=== PATIENT | female | born 1995 | race African-American/Black ===

== ENCOUNTER 2018-09-23 12:20 | Emergency (ER) | payer OTHER, SELFPAY ==
--- OUTSIDE RECORDS SUMMARY | 2018-09-23 12:23 | XMS REPORT ---
:1995 Author Organization eClinicalWorks Care Team Providers Name Role Phone Madhav Russell Provider Role Unavailable Allergies No Known Allergies Problems Problem Type Condition Code Onset Dates Condition Status Problem Acute cystitis without hematuria N30.00 Active Problem Encounter for surveillance of Z30.42 Active injectable contraceptive Problem Encounter for Depo-Provera Z30.42 Active contraception Assessment Encounter for Depo-Provera Z30.42 Active contraception Problem Encounter for gynecological Z01.419 Active examination without abnormal finding Problem Well woman exam with routine Z01.419 Active gynecological exam Medications Medication Code System Code Instructions Start Date End Date Status Dosage Bactrim DS [facility] 14131085408 800-160 MG Orally October 31, Active 1 tablet Twice a day 2017 Results No Known Results Summary Purpose eClinicalWorks Submission
--- OUTSIDE RECORDS SUMMARY | 2018-09-23 12:23 | XMS REPORT ---
:1995 Author Organization eClinicalWorks Care Team Providers Name Role Phone Madhav Russell Provider Role Unavailable Allergies, Adverse Reactions, Alerts Substance Reaction Event Type N.K.D.A. Info Not Available Non Drug Allergy Problems Problem Type Condition Code Onset Dates Condition Status Assessment Acute cystitis without hematuria N30.00 Active Assessment Encounter for surveillance of Z30.42 Active injectable contraceptive Problem Acute cystitis without hematuria N30.00 Active Problem Encounter for surveillance of Z30.42 Active injectable contraceptive Problem Well woman exam with routine Z01.419 Active gynecological exam Assessment Encounter for gynecological Z01.419 Active examination without abnormal finding Assessment Well woman exam with routine Z01.419 Active gynecological exam Problem Encounter for gynecological Z01.419 Active examination without abnormal finding Medications Medication Code System Code Instructions Start Date End Date Status Dosage Bactrim DS [facility] [id number] 800-160 MG Orally October 31, Active 1 tablet Twice a day 2018 Results No Known Results Summary Purpose eClinicalWorks Submission
[2018-09-23 13:35] LABS: Absolute Lymphocytes (CBC) 1.4 K/uL (0.7-4.9); Absolute Monocytes 0.4 K/uL (0.1-1.3); Absolute Neutrophil 3.6 K/uL (1.8-8.0); Basophils % 0.3 % (0-1.3); Eosinophils % 2.5 % (0-4.4); Hematocrit 41.4 % (36.0-45.0); Lymphocytes % 24.8 % (15.3-44.8); MPV 8.5 fL (7.6-11.3); Monocytes % 6.9 % (3.3-12.3); RBC Red Blood Cell Count 4.56 M/uL (3.86-4.86)
--- NOTE | 2018-09-23 13:40 | ER ---
Nurse's Notes [facility] Name: Yari Purcell Age: 23 yrs Sex: Female : 1995 Arrival Date: 09/23/2018 Time: 12:24 Bed 19 Private MD: Diagnosis: Dysmenorrhea, unspecified-menorrhagia Presentation: 09/23 12:43 Presenting complaint: Patient states: Vaginal bleeding that started this AM. Patient aj reports this is unusual for the first day of her period. Transition of care: patient was not received from another setting of care. Onset of symptoms was September 23, 2018. Risk Assessment: Do you want to hurt yourself or someone else? Patient reports no desire to harm self or others. Initial Sepsis Screen: Does the patient meet any 2 criteria? No. Patient's initial sepsis screen is negative. Does the patient have a suspected source of infection? No. Patient's initial sepsis screen is negative. Care prior to arrival: None. 12:43 Method Of Arrival: Ambulatory 12:43 Acuity: ANNA 3 aj Triage Assessment: 12:45 General: Appears in no apparent distress. comfortable, Behavior is calm, cooperative, aj appropriate for age. Pain: Denies pain. Neuro: Level of Consciousness is awake, alert, obeys commands, Oriented to person, place, time, situation, Appropriate for age. Respiratory: Airway is patent Respiratory effort is even, unlabored, Respiratory pattern is regular, symmetrical. : Reports vaginal bleeding that is bright red, moderate flow. Derm: Skin is intact, is healthy with good turgor, Skin is pink, warm \T\ dry. normal. 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 - Social history:: Smoking status: Patient/guardian denies using tobacco. - Ebola Screening: : Patient negative for fever greater than or equal to 101.5 degrees Fahrenheit, and additional compatible Ebola Virus Disease symptoms Patient denies exposure to infectious person Patient denies travel to an Ebola-affected area in the 21 days before illness onset No symptoms or risks identified at this time. Screenin:47 Abuse screen: Denies threats or abuse. Denies injuries from another. Nutritional hj screening: No deficits noted. Tuberculosis screening: No symptoms or risk factors identified. Fall Risk None identified. Assessment: 12:45 General: Appears in no apparent distress. uncomfortable, Behavior is calm, cooperative, hj appropriate for age. Pain: Denies pain. Neuro: Level of Consciousness is awake, alert, obeys commands, Oriented to person, place, time, situation, Appropriate for age. Cardiovascular: Capillary refill < 3 seconds Patient's skin is warm and dry. Respiratory: Airway is patent Respiratory effort is even, unlabored, Respiratory pattern is regular, symmetrical. GI: No signs and/or symptoms were reported involving the gastrointestinal system. : No signs and/or symptoms were reported regarding the genitourinary system. : Reports vaginal bleeding that is. EENT: No signs and/or symptoms were reported regarding the EENT system. Derm: No signs and/or symptoms reported regarding the dermatologic system. Musculoskeletal: No signs and/or symptoms reported regarding the musculoskeletal system. Vital Signs: 12:45 BP 122 / 83; Pulse 87; Resp 19; Temp 98.2; Pulse Ox 98% on R/A; Weight 44.45 kg; Height aj 5 ft. 2 in. (157.48 cm); 12:59 BP 125 / 90 Supine; Pulse 90; Resp 20; Pulse Ox 96% on R/A; hj 12:59 BP 121 / 95 Sitting; Pulse 88; Resp 20; Pulse Ox 100% on R/A; hj 12:59 BP 120 / 90 Standing; Pulse 97; Resp 20; Pulse Ox 100% on R/A; hj 12:45 Body Mass Index 17.92 (44.45 kg, 157.48 cm) ED Course: 12:24 Patient arrived in ED. mr 12:45 Triage completed. aj 12:45 Arm band placed on right wrist. Patient placed in an exam room. aj 12:46 Lucretia Shore FNP-C is PHCP. kb 12:46 Saeid Garcia MD is Attending Physician. kb 12:47 Tanner More RN is Primary Nurse. hj 12:47 Patient has correct armband on for positive identification. Bed in low position. Call hj light in reach. Side rails up X 1. 13:10 Initial lab(s) drawn, by me, sent to lab. Urine collected: clean catch specimen, leonardo hj colored. Inserted saline lock: 22 gauge in right antecubital area, using aseptic technique. Blood collected. 13:41 No provider procedures requiring assistance completed. Patient did not have IV access hj during this emergency room visit. Administered Medications: No medications were administered Outcome: 13:39 Discharge ordered by . dc 13:41 Discharged to home ambulatory, with family. hj 13:41 Condition: stable 13:41 Discharge instructions given to patient, Instructed on discharge instructions, follow up and referral plans. Demonstrated understanding of instructions, follow-up care. 13:50 Patient left the ED. Signatures: Lucretia Shore, ASSOCIATE MERCHANDISER-C ASSOCIATE MERCHANDISER-Racquel Bellamy, RN Kenzie Alex Henry, RN RN hj Corrections: (The following items were deleted from the chart) 12:46 12:43 Acuity: ANNA 4 richie quiroz
--- NOTE | 2018-09-23 13:40 | EDPHYS ---
Physician Documentation [facility] Name: Yari Purcell Age: 23 yrs Sex: Female : 1995 Arrival Date: 09/23/2018 Time: 12:24 Bed 19 Private MD: ED Physician Saeid Garcia HPI: 09/23 13:00 This 23 yrs old Black Female presents to ER via Ambulatory with complaints of Vaginal kb Bleeding. 13:00 The patient presents with vaginal bleeding that is moderate. Onset: The kb symptoms/episode began/occurred this morning. Modifying factors: The symptoms are alleviated by nothing, the symptoms are aggravated by nothing. Associated signs and symptoms: Pertinent positives: vaginal bleeding, Pertinent negatives: constipation, cramping, diarrhea, dyspareunia, dysuria, fever, hematuria, nausea, urinary frequency, vaginal discharge, vomiting. Severity of symptoms: At their worst the symptoms were moderate, in the emergency department the symptoms are unchanged. The patient has not experienced similar symptoms in the past. The patient has not recently seen a physician. Pt reports she started her period this morning and it is heavier than normal. . 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 - Social history:: Smoking status: Patient/guardian denies using tobacco. - Ebola Screening: : Patient negative for fever greater than or equal to 101.5 degrees Fahrenheit, and additional compatible Ebola Virus Disease symptoms Patient denies exposure to infectious person Patient denies travel to an Ebola-affected area in the 21 days before illness onset No symptoms or risks identified at this time. ROS: 12:57 Constitutional: Negative for fever, chills, and weight loss, Cardiovascular: Negative kb for chest pain, palpitations, and edema, Respiratory: Negative for shortness of breath, cough, wheezing, and pleuritic chest pain, Abdomen/GI: Negative for abdominal pain, nausea, vomiting, diarrhea, and constipation, Back: Negative for injury and pain, MS/Extremity: Negative for injury and deformity, Skin: Negative for injury, rash, and discoloration, Neuro: Negative for headache, weakness, numbness, tingling, and seizure. 12:57 : Positive for vaginal bleeding. Exam: 12:57 Constitutional: This is a well developed, well nourished patient who is awake, alert, kb and in no acute distress. Head/Face: Normocephalic, atraumatic. Chest/axilla: Normal chest wall appearance and motion. Nontender with no deformity. No lesions are appreciated. Cardiovascular: Regular rate and rhythm with a normal S1 and S2. No gallops, murmurs, or rubs. Normal PMI, no JVD. No pulse deficits. Respiratory: Lungs have equal breath sounds bilaterally, clear to auscultation and percussion. No rales, rhonchi or wheezes noted. No increased work of breathing, no retractions or nasal flaring. Abdomen/GI: Soft, non-tender, with normal bowel sounds. No distension or tympany. No guarding or rebound. No evidence of tenderness throughout. Skin: Warm, dry with normal turgor. Normal color with no rashes, no lesions, and no evidence of cellulitis. MS/ Extremity: Pulses equal, no cyanosis. Neurovascular intact. Full, normal range of motion. Neuro: Awake and alert, GCS 15, oriented to person, place, time, and situation. Cranial nerves II-XII grossly intact. Motor strength 5/5 in all extremities. Sensory grossly intact. Cerebellar exam normal. Normal gait. Vital Signs: 12:45 BP 122 / 83; Pulse 87; Resp 19; Temp 98.2; Pulse Ox 98% on R/A; Weight 44.45 kg; Height aj 5 ft. 2 in. (157.48 cm); 12:59 BP 125 / 90 Supine; Pulse 90; Resp 20; Pulse Ox 96% on R/A; hj 12:59 BP 121 / 95 Sitting; Pulse 88; Resp 20; Pulse Ox 100% on R/A; hj 12:59 BP 120 / 90 Standing; Pulse 97; Resp 20; Pulse Ox 100% on R/A; hj 12:45 Body Mass Index 17.92 (44.45 kg, 157.48 cm) MDM: 12:47 Patient medically screened. 12:57 Data reviewed: vital signs, nurses notes. Data interpreted: Pulse oximetry: on room air kb is 98 %. Interpretation: normal. 13:38 Counseling: I had a detailed discussion with the patient and/or guardian regarding: the kb historical points, exam findings, and any diagnostic results supporting the discharge/admit diagnosis, lab results, the need for outpatient follow up, an OB/Gyne specialist, to return to the emergency department if symptoms worsen or persist or if there are any questions or concerns that arise at home. 09/23 12:46 Order name: CBC with Diff; Complete Time: 13:38 kb 09/23 12:58 Order name: Urine Dipstick--Ancillary (enter results) bd 09/23 12:46 Order name: Orthostatics; Complete Time: 12:59 kb 09/23 12:46 Order name: Urine Test (obtain specimen); Complete Time: 12:55 kb 09/23 12:46 Order name: Urine Dipstick-Ancillary (obtain specimen); Complete Time: 12:56 kb 09/23 12:58 Order name: Urine --Ancillary (enter results) bd Administered Medications: No medications were administered Disposition: 13:57 Co-signature as Attending Physician, Saeid Garcia MD. rn Disposition: 09/23/18 13:39 Discharged to Home. Impression: Dysmenorrhea, unspecified - menorrhagia. - Condition is Stable. - Discharge Instructions: Menorrhagia, [id number]. - Medication Reconciliation Form, Thank You Letter, Antibiotic Education, Prescription Opioid Use, Work release form form. - Follow up: Emergency Department; When: As needed; Reason: Worsening of condition. Follow up: Private Physician; When: 2 - 3 days; Reason: Recheck today's complaints, Continuance of care, Re-evaluation by your physician. Signatures: Dispatcher [employer] EDMT Lucretia Shore, [employer] VP [employer]CTS [employer]ANNING-Racquel Bellamy RN RN aj Nieto, Roman, MD MD rn Joaquin, Henry, RN RN Corrections: (The following items were deleted from the chart) 13:40 13:39 09/23/2018 13:39 Discharged to Home. Impression: Dysmenorrhea, unspecified. kb Condition is Stable. Forms are Medication Reconciliation Form, Thank You Letter, Antibiotic Education, Prescription Opioid Use. Follow up: Emergency Department; When: As needed; Reason: Worsening of condition. Follow up: Private Physician; When: 2 - 3 days; Reason: Recheck today's complaints, Continuance of care, Re-evaluation by your physician. kb 13:50 13:40 09/23/2018 13:39 Discharged to Home. Impression: Dysmenorrhea, unspecified - hj menorrhagia. Condition is Stable. Discharge Instructions: Menorrhagia, [id number]. Forms are Medication Reconciliation Form, Thank You Letter, Antibiotic Education, Prescription Opioid Use. Follow up: Emergency Department; When: As needed; Reason: Worsening of condition. Follow up: Private Physician; When: 2 - 3 days; Reason: Recheck today's complaints, Continuance of care, Re-evaluation by your physician. kb
[2018-09-23 14:00] LABS: Urine Blood 2+ (NEG); Urine Glucose NEGATIVE (NEG); Urine Protein NEGATIVE (NEG); Urine Specific Gravity 1.025 (1.005-1.030); Urine pH 6.5 (5.0-7.0)
== END 2018-09-23 13:50 | disposition home or self-care (01) ==
LOC: ER 12:20
DX: N94.6 Dysmenorrhea, unspecified (principal); N92.0 Excessive and frequent menstruation with regular cycle
CPT/HCPCS: 36415; 81003; 81025; 85025; 99283

== ENCOUNTER 2020-06-01 20:36 | Emergency (ER) | payer SELFPAY ==
--- OUTSIDE RECORDS SUMMARY | 2020-06-01 20:38 | XMS REPORT | Continuity of Care Document ---
:1995 Author Organization [facility] t Address [address] [place] [address] Care Team Providers Name Role Phone Unavailable Unavailable Unavailable Problems Condition Condition Condition Status Onset Resolution Last Treating Co mments Source Name Details Category Date Date Treatment Clinician Date Acute Acute Problem Active [facility] - without without [facility] hematuria hematuria l [facility] Encounter Encounter Diagnosis Active [facility] for for [facility] - Depo-Prove Depo-Prove Me moria ra ra l contracept contracept Ou tpati ion ion ent Clinics Well woman Well woman Problem Active [facility] exam with exam with [facility] - routine routine [facility] gynecologi gynecologi l woodrow exam woodrow exam Outpat i ent Clinics Allergies, Adverse Reactions, Alerts This patient has no known allergies or adverse reactions. Medications Ordered Filled Start Stop Current Ordering Indication Dosage Frequency Signature Comments Components Source Medication Medication Date Date Medication? Clinician (SIG) Name Name Bactrim DS Bactrim DS 2017- Yes Madhav [address] [facility] 6-28 [facility] - 00:00: [facility] Procedures This patient has no known procedures. Encounters Start End Encounter Admission Attending Care Care Encounter Source Date/Time Date/Time Type Type Clinicians Facility Department ID 2018-02-03 2018-02-03 [facility] [id number] [facility] 14:15:00 14:15:00 [facility] 2017-10-31 2017-10-31 [facility] [id number] [facility] 10[facility]45:00 10:45:00 t [facility] Results This patient has no known results.
--- NOTE | 2020-06-01 23:55 | ER ---
Nurse's Notes [facility] Name: Yari Purcell Age: 25 yrs Sex: Female : 1995 Arrival Date: 06/01/2020 Time: 20:39 Bed 18 Private MD: Diagnosis: Viral syndrome Presentation: 06/01 21:06 Chief complaint: Patient states: body aches and headache since Saturday, test negative rv for the same day. symptoms gotten worse today. with nausea and vomiting, and abdominal pain. Coronavirus screen: cough unrelated to allergies, headache, muscle pain. Coronavirus screen: Client presents with at least one sign or symptom that may indicate coronavirus-19. Standard/surgical mask placed on the client. Provider contacted for isolation considerations. Ebola Screen: No symptoms or risks identified at this time. Initial Sepsis Screen: Does the patient meet any 2 criteria? No. Patient's initial sepsis screen is negative. Does the patient have a suspected source of infection? No. Patient's initial sepsis screen is negative. Risk Assessment: Do you want to hurt yourself or someone else? Patient reports no desire to harm self or others. Onset of symptoms was June 01, 2020 at 08:00. 21:06 Method Of Arrival: Ambulatory rv 21:06 Acuity: ANNA 3 rv Triage Assessment: 21:08 Headache History: The patient has had previous headaches and this one is similar to rv previous episodes. General: Appears. General: Appears comfortable, Behavior is calm, cooperative. Pain: Complains of pain in abdomen, head. Pain: Pain currently is 6 out of 10 on a pain scale. Pain began 2-3 days ago. Also complains of no other associated symptoms. EENT: No signs and/or symptoms were reported regarding the EENT system. Neuro: Level of Consciousness is awake, alert, obeys commands, Oriented to person, place, time, situation. Respiratory: Airway is patent Respiratory effort is even, unlabored, Breath sounds are clear bilaterally. Derm: Skin is intact. Historical: - Allergies: 21:08 No Known Allergies; rv - PMHx: 21:08 None; rv - PSHx: 21:08 ; rv - Immunization history:: Adult Immunizations up to date. - Social history:: Smoking status: Patient denies any tobacco usage or history of. - Family history:: not pertinent. - Hospitalizations: : No recent hospitalization is reported. Screenin:30 Abuse screen: Denies threats or abuse. Nutritional screening: No deficits noted. em Tuberculosis screening: No symptoms or risk factors identified. Fall Risk None identified. Assessment: 22:30 General: Appears in no apparent distress. comfortable, Behavior is calm, cooperative, em appropriate for age. Pain: Complains of pain in "body aches" Pain currently is 6 out of 10 on a pain scale. Neuro: Level of Consciousness is awake, alert, obeys commands, Oriented to person, place, time, situation, Appropriate for age. Cardiovascular: Capillary refill < 3 seconds Patient's skin is warm and dry. Respiratory: Airway is patent Respiratory effort is even, unlabored, Respiratory pattern is regular, symmetrical. GI: Patient currently denies nausea, vomiting. Derm: Skin is intact, is healthy with good turgor, Skin is pink, warm \\T\\ dry. Musculoskeletal: Capillary refill < 3 seconds, Range of motion: intact in all extremities. Vital Signs: 21:06 BP 100 / 75; Pulse 84; Resp 18; Temp 98; Pulse Ox 100% ; Weight 46.27 kg; Height 5 ft. rv 2 in. (157.48 cm); Pain 6/10; 21:06 Body Mass Index 18.66 (46.27 kg, 157.48 cm) rv ED Course: 20:39 Patient arrived in ED. bp1 21:08 Triage completed. rv 21:10 Arm band placed on right wrist. Patient placed in the treatment room, on a stretcher, rv Patient notified of wait time. 22:26 Saeid Garcia MD is Attending Physician. rn 22:26 El Mensah, GABBY is Primary Nurse. em 23:04 Flu and/or RSV swab sent to lab. em 06/02 00:00 COVID swab sent to lab. em 00:10 No provider procedures requiring assistance completed. Patient did not have IV access em during this emergency room visit. Administered Medications: No medications were administered Outcome: 06/01 23:55 Discharge ordered by . rn 06/02 00:10 Discharged to home ambulatory. em Condition: stable Discharge instructions given to patient, Instructed on discharge instructions, follow up and referral plans. medication usage, Demonstrated understanding of instructions, follow-up care. 00:11 Patient left the ED. em Signatures: El Mensah, RN RN Saeid Weldon MD MD rn Milton Oden RN RN Vanda Gutierrez
--- NOTE | 2020-06-01 23:55 | EDPHYS ---
Physician Documentation [facility] Name: Yari Purcell Age: 25 yrs Sex: Female : 1995 Arrival Date: 06/01/2020 Time: 20:39 Bed 18 Private MD: ED Physician Saeid Garcia HPI: 06/01 23:01 This 25 yrs old Black Female presents to ER via Ambulatory with complaints of Headache rn > 24hrs Old, Body Aches. 23:01 Reports 1 week of headache, fatigue, muscle aches. Reports family member tested + for rn COVID, she was tested at onset and negative, but still feels sick. Reports assoc with nausea/vomiting/diarrhea. No abd pain. . Onset: The symptoms/episode began/occurred 1 week(s) ago. Severity of symptoms: At their worst the symptoms were mild in the emergency department the symptoms are unchanged. The patient has experienced a previous episode. The patient has been recently seen by a physician:. Historical: - Allergies: 21:08 No Known Allergies; rv - PMHx: 21:08 None; rv - PSHx: 21:08 ; rv - Immunization history:: Adult Immunizations up to date. - Social history:: Smoking status: Patient denies any tobacco usage or history of. - Family history:: not pertinent. - Hospitalizations: : No recent hospitalization is reported. ROS: 23:01 Constitutional: Negative for fever, chills, and weight loss, Eyes: Negative for injury, rn pain, redness, and discharge, ENT: Negative for injury, pain, and discharge, Neck: Negative for injury, pain, and swelling, Cardiovascular: Negative for chest pain, palpitations, and edema, Respiratory: Negative for shortness of breath, cough, wheezing, and pleuritic chest pain, Abdomen/GI: Negative for abdominal pain, and constipation, Back: Negative for injury and pain, : Negative for injury, bleeding, discharge, and swelling, MS/Extremity: Negative for injury and deformity, Skin: Negative for injury, rash, and discoloration, Neuro: Negative for numbness, tingling, and seizure. Exam: 23:01 Constitutional: This is a well developed, well nourished patient who is awake, alert, rn and in no acute distress. Head/Face: Normocephalic, atraumatic. Neck: Trachea midline, no masses palpated, and no cervical lymphadenopathy. Supple, full range of motion without nuchal rigidity, or vertebral point tenderness. No Meningismus. Cardiovascular: Regular rate and rhythm. No pulse deficits. Respiratory: Speaking full sentences. UNlabored. No increased work of breathing, no retractions or nasal flaring. Abdomen/GI: soft, non-tender Skin: Warm, dry MS/ Extremity: Pulses equal, no cyanosis. Neuro: Awake and alert, GCS 15 Vital Signs: 21:06 BP 100 / 75; Pulse 84; Resp 18; Temp 98; Pulse Ox 100% ; Weight 46.27 kg; Height 5 ft. rv 2 in. (157.48 cm); Pain 6/10; 21:06 Body Mass Index 18.66 (46.27 kg, 157.48 cm) rv MDM: 22:26 Patient medically screened. rn 23:53 Differential Diagnosis flu, COVID, viral syndrome. Data reviewed: vital signs, nurses rn notes, lab test result(s), and as a result, I will discharge patient. Counseling: I had a detailed discussion with the patient and/or guardian regarding: the historical points, exam findings, and any diagnostic results supporting the discharge/admit diagnosis, lab results, the need for outpatient follow up, to return to the emergency department if symptoms worsen or persist or if there are any questions or concerns that arise at home. Special discussion: I discussed with the patient/guardian in detail that at this point there is no indication for admission to the hospital. It is understood, however, that if the symptoms persist or worsen the patient needs to return immediately for re-evaluation. ED course: Flu neg, confusion regarding covid testing, testing inadvertently cancelled, will swab and call her with result, that way she does not have to wait any longer on result. Patient fine with this plan. NO oxygen requirement and knowing COVID result now vs 3 hours will not have clinical significance. . 06/01 22:28 Order name: Flu; Complete Time: 23:28 rn Administered Medications: No medications were administered Disposition: 06/01/20 23:55 Discharged to Home. Impression: Viral syndrome. - Condition is Stable. - Medication Reconciliation Form, Thank You Letter, Antibiotic Education, Prescription Opioid Use form. - Follow up: Private Physician; When: As needed; Reason: Recheck today's complaints, Re-evaluation by your physician. - Problem is an ongoing problem. - Symptoms have improved. Signatures: Dispatcher [employer] El Chris, RN RN Saeid Weldon MD MD rn Vicente, Ronaldo, RN RN rv Corrections: (The following items were deleted from the chart) 06/02 00:11 06/01 23:55 06/01/2020 23:55 Discharged to Home. Impression: Viral syndrome. Condition em is Stable. Forms are Medication Reconciliation Form, Thank You Letter, Antibiotic Education, Prescription Opioid Use. Follow up: Private Physician; When: As needed; Reason: Recheck today's complaints, Re-evaluation by your physician. Problem is an ongoing problem. Symptoms have improved. rn
[2020-06-02 00:39] VITALS: BP 100/75; TEMP 98; O2SAT 100
== END 2020-06-02 00:11 | disposition home or self-care (01) ==
LOC: ER 20:36
DX: B34.9 Viral infection, unspecified (principal); Z20.822 Contact with and (suspected) exposure to COVID-19
CPT/HCPCS: 87804; 99283; U0003

== ENCOUNTER 2020-10-28 02:49 | Emergency (ER) | payer SELFPAY ==
--- OUTSIDE RECORDS SUMMARY | 2020-10-28 02:52 | XMS REPORT | Continuity of Care Document ---
:1995 Author Organization [facility] t Address [address] [place] [address] Care Team Providers Name Role Phone Visit, Nurse Attending Clinician Unavailable Tera Phan Attending Clinician Shirley León Attending Clinician Problems Condition Condition Condition Status Onset Resolution [...] (SIG) Name Name Bactrim DS Bactrim DS 2018-0 Yes Madhav [address] [facility] Procedures This patient has no known procedures. Encounters Start End Encounter Admission Attending Care Care Encounter Source Date/Time Date/Time Type Type Clinicians Facility Department ID 2020-09-27 2020-09-27 Nurse Visit, [facility] [id number] 10:24:23 10:49:43 Visit Alex INSURANCE RISK ANALYST [id number] Nurse REGIONAL [id number] MATERNAL [id number] & CHILD [address] [facility] 2020-09-15 2020-09-15 [email or web address] [id number] 00:00:00 00:00:00 Odalys Tera INSURANCE RISK ANALYST [id number] REGIONAL [id number] MATERNAL [id number] & CHILD [address] [facility] 2020-09-13 2020-09-13 Office [email or web address] [id number] 14:47:29 16:04:46 Visit Laura Watson INSURANCE RISK ANALYST [id number] REGIONAL [id number] MATERNAL [id number] & CHILD [address] [facility] 2018-02-03 2018-02-03 [facility] [id number] [facility] 14:15:00 14:15:00 [facility] [place] 2017-10-31 2017-10-31 [facility] [id number] [facility] [address] 10:45:00 10:45:00 t [facility] [place] [facility] Results This patient has no known results.
--- NOTE | 2020-10-28 03:35 | EDPHYS ---
Physician Documentation [facility] Name: Yari Purcell Age: 25 yrs Sex: Female : 1995 Arrival Date: 10/28/2020 Time: 02:53 Bed 18 Private MD: ED Physician Felipe Gustafson HPI: 10/28 03:29 This 25 yrs old Black Female presents to ER via Ambulatory with complaints of Ear Pain. lucas 03:29 The patient presents with pain, that is acute. The complaints affect the left ear. lucas Onset: The symptoms/episode began/occurred just prior to arrival. Modifying factors: The symptoms are alleviated by nothing, the symptoms are aggravated by touching. Associated signs and symptoms: The patient has no apparent associated signs or symptoms. Severity of symptoms: At their worst the symptoms were moderate in the emergency department the symptoms have improved moderately. The patient has not experienced similar symptoms in the past. 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 - Social history:: Smoking status: Patient denies any tobacco usage or history of. ROS: 03:32 Constitutional: Negative for fever, chills, and weight loss, Eyes: Negative for injury, lucas pain, redness, and discharge, Neck: Negative for injury, pain, and swelling, Cardiovascular: Negative for chest pain, palpitations, and edema, Respiratory: Negative for shortness of breath, cough, wheezing, and pleuritic chest pain, Abdomen/GI: Negative for abdominal pain, nausea, vomiting, diarrhea, and constipation, Back: Negative for injury and pain, : Negative for injury, bleeding, discharge, and swelling, MS/Extremity: Negative for injury and deformity, Skin: Negative for injury, rash, and discoloration, Neuro: Negative for headache, weakness, numbness, tingling, and seizure, Psych: Negative for depression, anxiety, suicide ideation, homicidal ideation, and hallucinations, Allergy/Immunology: Negative for hives, rash, and allergies, Endocrine: Negative for neck swelling, polydipsia, polyuria, polyphagia, and marked weight changes, Hematologic/Lymphatic: Negative for swollen nodes, abnormal bleeding, and unusual bruising. 03:32 ENT: Positive for ear pain. Exam: 03:32 Constitutional: This is a well developed, well nourished patient who is awake, alert, lucas and in no acute distress. Head/Face: Normocephalic, atraumatic. Eyes: Pupils equal round and reactive to light, extra-ocular motions intact. Lids and lashes normal. Conjunctiva and sclera are non-icteric and not injected. Cornea within normal limits. Periorbital areas with no swelling, redness, or edema. Neck: Trachea midline, no thyromegaly or masses palpated, and no cervical lymphadenopathy. Supple, full range of motion without nuchal rigidity, or vertebral point tenderness. No Meningismus. Chest/axilla: Normal chest wall appearance and motion. Nontender with no deformity. No lesions are appreciated. Cardiovascular: Regular rate and rhythm with a normal S1 and S2. No gallops, murmurs, or rubs. Normal PMI, no JVD. No pulse deficits. Respiratory: Lungs have equal breath sounds bilaterally, clear to auscultation and percussion. No rales, rhonchi or wheezes noted. No increased work of breathing, no retractions or nasal flaring. Abdomen/GI: Soft, non-tender, with normal bowel sounds. No distension or tympany. No guarding or rebound. No evidence of tenderness throughout. Back: No spinal tenderness. No costovertebral tenderness. Full range of motion. Skin: Warm, dry with normal turgor. Normal color with no rashes, no lesions, and no evidence of cellulitis. MS/ Extremity: Pulses equal, no cyanosis. Neurovascular intact. Full, normal range of motion. Neuro: Awake and alert, GCS 15, oriented to person, place, time, and situation. Cranial nerves II-XII grossly intact. Motor strength 5/5 in all extremities. Sensory grossly intact. Cerebellar exam normal. Normal gait. Psych: Awake, alert, with orientation to person, place and time. Behavior, mood, and affect are within normal limits. 03:32 ENT: TM's: erythema, that is moderate, on the left, Examination of the other ear shows no obvious abnormality, Nose: is normal, no acute changes, Examination of the other nostril shows no obvious abnormality, Mouth: is normal, no acute changes, Posterior pharynx: is normal, no acute changes, Airway: normal, no evidence of obstruction. Vital Signs: 03:13 BP 128 / 93; Pulse 93; Resp 18; Temp 97.6; Pulse Ox 99% on R/A; Weight 47.63 kg; Height em 5 ft. 3 in. (160.02 cm); Pain 10/10; 03:13 Body Mass Index 18.60 (47.63 kg, 160.02 cm) em MDM: 03:22 Patient medically screened. [facility] 03:38 Differential diagnosis: otitis media, otitis externa, ruptured TM, foreign body, acute lucas otalgia, cerumen impaction. Data reviewed: vital signs, nurses notes. Data interpreted: child monitor: not applicable for this patient encounter. rate is 93 beats/min, rhythm is regular, Pulse oximetry: is not applicable for this patient encounter. Counseling: I had a detailed discussion with the patient and/or guardian regarding: the historical points, exam findings, and any diagnostic results supporting the discharge/admit diagnosis, the need for outpatient follow up. 10/28 03:39 Order name: Urine Dipstick-Ancillary [facility] 10/28 03:45 Order name: Urine Culture [facility] 10/28 03:29 Order name: Urine Dipstick-Ancillary (obtain specimen); Complete Time: 03:45 [facility] 10/28 03:29 Order name: Urine Test (obtain specimen); Complete Time: 03:45 [facility] Administered Medications: 03:56 Drug: Motrin (ibuprofen) 400 mg Route: PO; jb4 03:56 Drug: Cortisporin (neomycin-polymyxin) Drops 4 drops Route: Otic; Site: left ear; jb4 03:57 Drug: Rocephin (cefTRIAXone) 1 grams Route: IM; Site: left gluteus; jb4 04:05 Drug: Augmentin (Amoxicillin-Clavulanate) 875 mg Route: PO; jb4 Disposition: 10/28/20 03:35 Discharged to Home. Impression: Otitis media, unspecified, left ear, Otitis externa. - Condition is Stable. - Discharge Instructions: Otitis Media, Adult, Otitis Externa, Otitis Externa, [id number], Otitis Media, Adult, Ghuy-ku-[id number]. - Prescriptions for Augmentin 875- 125 mg Oral Tablet - take 1 tablet by ORAL route every 12 hours for 10 days; 14 tablet. Cortisporin- TC 3.3-3-10-0.5 mg/mL Otic Suspension - instill 4 drop by OTIC route every 6 hours; 1 bottle. Motrin IB 200 mg Oral Tablet - take 2 tablet by ORAL route every 6 hours As needed as needed with food; 30 tablet. - Medication Reconciliation Form, Thank You Letter, Antibiotic Education, Prescription Opioid Use, Work release form form. - Follow up: Private Physician; When: 2 - 3 days; Reason: Recheck today's complaints, Continuance of care, Re-evaluation by your physician. Follow up: Eva Giorn MD; When: 2 - 3 days; Reason: Recheck today's complaints, Continuance of care, Re-evaluation by your physician. - Problem is new. - Symptoms have improved. Signatures: Dispatcher [employer] Felipe Tsang MD MD cha Munoz, Edgar, RN RN Anibal John RN RN jb4 Corrections: (The following items were deleted from the chart) 04:10 03:35 10/28/2020 03:35 Discharged to Home. Impression: Otitis media, unspecified, left jb4 ear; Otitis externa. Condition is Stable. Forms are Medication Reconciliation Form, Thank You Letter, Antibiotic Education, Prescription Opioid Use. Follow up: Private Physician; When: 2 - 3 days; Reason: Recheck today's complaints, Continuance of care, Re-evaluation by your physician. Follow up: Eva Giron; When: 2 - 3 days; Reason: Recheck today's complaints, Continuance of care, Re-evaluation by your physician. Problem is new. Symptoms have improved. lucas
--- NOTE | 2020-10-28 03:35 | ER ---
Nurse's Notes [facility] Name: Yari Purcell Age: 25 yrs Sex: Female : 1995 Arrival Date: 10/28/2020 Time: 02:53 Bed 18 Private MD: Diagnosis: Otitis media, unspecified, left ear;Otitis externa Presentation: 10/28 03:13 Chief complaint: Patient states: L ear pain since this morning, also reports nasal em congestion, denies fever. Coronavirus screen: Client denies travel out of the [place] in the last 14 days. Ebola Screen: Patient negative for fever greater than or equal to 101.5 degrees Fahrenheit, and additional compatible Ebola Virus Disease symptoms Patient denies exposure to infectious person. Patient denies travel to an Ebola-affected area in the 21 days before illness onset. No symptoms or risks identified at this time. Initial Sepsis Screen: Does the patient meet any 2 criteria? HR > 90 bpm. No. Patient's initial sepsis screen is negative. Does the patient have a suspected source of infection? No. Patient's initial sepsis screen is negative. Risk Assessment: Do you want to hurt yourself or someone else? Patient reports no desire to harm self or others. Onset of symptoms was October 28, 2020. 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 - Social history:: Smoking status: Patient denies any tobacco usage or history of. Screenin:22 Abuse screen: Denies threats or abuse. Nutritional screening: No deficits noted. jb4 Tuberculosis screening: No symptoms or risk factors identified. Fall Risk None identified. Assessment: 03:22 General: Appears in no apparent distress. uncomfortable, Behavior is calm, cooperative, jb4 appropriate for age. Pain: Complains of pain in left ear Pain does not radiate. Pain currently is 10 out of 10 on a pain scale. Neuro: Level of Consciousness is awake, alert, obeys commands, Oriented to person, place, time, situation. Cardiovascular: Patient's skin is warm and dry. Respiratory: Airway is patent Respiratory effort is even, unlabored, Respiratory pattern is regular, symmetrical. GI: No signs and/or symptoms were reported involving the gastrointestinal system. : No signs and/or symptoms were reported regarding the genitourinary system. EENT: Ear canal clear on left ear. Musculoskeletal: Circulation, motion, and sensation intact. Range of motion: intact in all extremities. 04:09 Reassessment: Patient appears in no apparent distress at this time. Patient and/or jb4 family updated on plan of care and expected duration. Pain level reassessed. Patient is alert, oriented x 3, equal unlabored respirations, skin warm/dry/pink. Vital Signs: 03:13 BP 128 / 93; Pulse 93; Resp 18; Temp 97.6; Pulse Ox 99% on R/A; Weight 47.63 kg; Height em 5 ft. 3 in. (160.02 cm); Pain 10/10; 03:13 Body Mass Index 18.60 (47.63 kg, 160.02 cm) em ED Course: 02:53 Patient arrived in ED. es 03:15 Triage completed. em 03:15 Arm band placed on. em 03:22 Anibal Ruano RN is Primary Nurse. jb4 03:22 Felipe Gustafson MD is Attending Physician. lucas 03:22 Patient has correct armband on for positive identification. Bed in low position. Call jb4 light in reach. Side rails up X 1. 03:34 Eva Giron MD is Referral Physician. lucas 04:09 No provider procedures requiring assistance completed. Patient did not have IV access jb4 during this emergency room visit. Administered Medications: 03:56 Drug: Motrin (ibuprofen) 400 mg Route: PO; jb4 03:56 Drug: Cortisporin (neomycin-polymyxin) Drops 4 drops Route: Otic; Site: left ear; jb4 03:57 Drug: Rocephin (cefTRIAXone) 1 grams Route: IM; Site: left gluteus; jb4 04:05 Drug: Augmentin (Amoxicillin-Clavulanate) 875 mg Route: PO; jb4 Outcome: 03:35 Discharge ordered by . lucas 04:09 Discharged to home ambulatory. jb4 04:09 Condition: stable 04:09 Discharge instructions given to patient, Instructed on discharge instructions, follow up and referral plans. medication usage, Demonstrated understanding of instructions, follow-up care, medications, Prescriptions given X 3. 04:10 Patient left the ED. jb4 Signatures: Felipe Gustafson MD MD cha Salyer, Edna es Munoz, Edgar, RN RN Anibal John RN RN jb4
[2020-10-28 03:40] LABS: Urine Blood Negative (Negative); Urine Glucose Negative (Negative); Urine Protein Negative (Negative); Urine Specific Gravity 1.025 (1.005-1.030); Urine pH 6.5 (5.0-7.0)
[2020-10-28] MEDS ORDERED: CEFTRIAXONE 1000 MG/VIAL ONE (04:04)
[2020-10-28] MEDS ORDERED: IBUPROFEN 400 MG TAB ONE (04:04)
[2020-10-28] MEDS ORDERED: NEOMY/POLY/HC 1% OTIC DROPS ONE (04:04)
[2020-10-28 04:19] VITALS: BP 128/93; TEMP 97.6; O2SAT 99
[2020-10-28] MEDS ORDERED: AMOX/K CLAV 875 MG TAB ONE (04:21)
== END 2020-10-28 04:10 | disposition home or self-care (01) ==
LOC: ER 02:49
DX: H66.92 Otitis media, unspecified, left ear (principal); H60.92 Unspecified otitis externa, left ear
CPT/HCPCS: 81003; 87077; 87086; 87088; 87186

== ENCOUNTER 2021-11-07 14:22 | Emergency (ER) | payer SELFPAY ==
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
[2021-11-07] MEDS ORDERED: IBUPROFEN 400 MG TAB ONE (15:14)
[2021-11-07 15:50] VITALS: BP 118/92; TEMP 97.4; O2SAT 100
== END 2021-11-07 15:39 | disposition home or self-care (01) ==
LOC: ER 14:22
DX: M54.50 Low back pain, unspecified (principal)